=== PATIENT | male | born 1955 | race Caucasian/White ===

== ENCOUNTER 2017-04-18 08:32 | Emergency (ER) | payer MEDICARE ==
[~2017-04-18] VITALS: Ht 180.3 cm; Wt 94.0 kg
[~2017-04-18 08:32] MED LIST: CYCL5TAB PO; HYDR10TA16 PO; LORC10TA PO; PERC10TA27 PO; PROT40TA PO
[2017-04-18 08:36] VITALS: BP 181/84; PULSE 98; RESP 16; TEMP 97.4; O2SAT 95
[2017-04-18] MEDS ORDERED: LISI-519 PO (08:53)
[2017-04-18] MEDS ORDERED: DEXI60CA3 PO (08:53)
[2017-04-18] MEDS ORDERED: ATOR20TA15 PO (08:53)
[2017-04-18] MEDS ORDERED: METF1000 PO (08:53)
[2017-04-18] MEDS ORDERED: CLAR10CA3 PO (08:53)
[2017-04-18] MEDS ORDERED: ASPI-516 CHEW (08:53)
[2017-04-18] MEDS ORDERED: MULT-65 PO (08:53)
[2017-04-18] MEDS ORDERED: HYDR-3583 PO (08:53)
--- NOTE | 2017-04-18 09:18 | PD ---
HPI Chief Complaint: Skin Problem Time Seen by Provider: 09:05 Travel History International Travel<30 days: No Contact w/Intl Traveler<30days: No Traveled to known affect area: No History of Present Illness HPI 61 YO M PMH of DM, HTN, chronic pain, MRSA presents to the ED for evaluation of week history of painful wound of the lower right abdomen. I states "I think I 'm having a MRSA outbreak." He states that the wounds have both opened and drained copious pus. He endorses mild nausea. He denies fever, chills, vomiting. He treated at home with Bactroban ointment. PFSH Past Medical History Hx Anticoagulant Therapy: Yes (ASA 81 MG.) Cardiovascular Problems: No Cerebrovascular Accident: Yes (TIA'S HTN, CHOL) Diabetes: Yes (PRE) Patient Takes Glucophage: Yes Diminished Hearing: No Musculoskeletal: No Neurologic: No Migraines: No Seizures: No Tetanus Vaccination: Unknown Past Surgical History Abdominal Surgery: No Cardiac Surgery: No Cholecystectomy: Yes (03) Ear Surgery: No Endocrine Surgery: No Eye Surgery: No Gynecologic Surgery: No Oral Surgery: No Thoracic Surgery: No Social History Alcohol Use: No Tobacco Use: Yes (1 PPD) Substance Use: No Allergies-Medications (Allergen,Severity, Reaction): Coded Allergies: penicillin G (Unverified Allergy, Mild, 04/18/17) Reported Meds & Prescriptions Reported Meds & Active Scripts Active Reported Multi-Vitamin Daily (Multiple Vitamin) 1 Tab Tab 1 Tab PO DAILY Claritin (Loratadine) 10 Mg Cap 10 Mg PO DAILY Aspirin 81 Mg Chew 81 Mg CHEW DAILY Hydrocodone-Acetaminophen 10-325 mg Tab 2 Tab PO Q8HR PRN Atorvastatin (Atorvastatin Calcium) 20 Mg Tab 20 Mg PO HS Lisinopril 5 Mg Tab 5 Mg PO DAILY Dexilant (Dexlansoprazole) 60 Mg Cap.bp 1 Cap PO DAILY Metformin (Metformin HCl) 1,000 Mg Tab 2,000 Mg PO DAILY With a meal Review of Systems Except as stated in HPI: all other systems reviewed are Neg Physical Exam Narrative GENERAL: Well-nourished, well-developed white male in no acute distress. SKIN: Focused skin assessment warm/dry. Multiple tattoos noted. SKIN: There are 2 two indurated areas in the right lower abdomen which measure about 0.5 cm in diameter each. Both are open with small amount of purulent drainage. No fluctuance noted. There is a zone of inflammation around it but no lymphangitis. HEAD: Normocephalic. EYES: No scleral icterus. No injection or drainage. NECK: Supple, trachea midline. No JVD or lymphadenopathy. CARDIOVASCULAR: Regular rate and rhythm without murmurs, gallops, or rubs. RESPIRATORY: Breath sounds equal bilaterally. No accessory muscle use. GASTROINTESTINAL: Abdomen soft, non-tender, nondistended. MUSCULOSKELETAL: No cyanosis, or edema. BACK: Nontender without obvious deformity. No CVA tenderness. Data Data Last Documented VS Vital Signs Date Time Temp Pulse Resp B/P (MAP) Pulse Ox O2 Delivery O2 Flow Rate FiO2 04/18/17 08:36 97.4 98 16 181/84 (116) 95 MDM Medical Decision Making Medical Screen Exam Complete: Yes Emergency Medical Condition: Yes Differential Diagnosis Folliculitis versus abscess versus cellulitis versus other Narrative Course 61 YO M PMH of DM, HTN, chronic pain, MRSA presents to the ED for evaluation of week history of painful wound of the lower right abdomen. I states "I think I 'm having a MRSA outbreak." He states that the wounds have both opened and drained copious pus. He endorses mild nausea. He denies fever, chills, vomiting. He treated at home with Bactroban ointment. He is afebrile on presentation. Physical exam suspicious for small abscesses, draining. No I&D needed. Given history we'll treat for MRSA. Patient's prescribed doxycycline 100 mg twice a day 7 days. We'll refill his Bactroban ointment and have him discard the old tube as well. Patient was provided detailed wound care instructions. We discussed reasons to return to the ED. He indicated understanding the instructions. He is stable and discharged home. Diagnosis Primary Impression: Abscess Additional Impression: MRSA cellulitis Referrals: Primary Care Physician Patient Instructions: Abscess (ED), Cellulitis (ED), General Instructions, MRSA (Methicillin-Resistant Staphylococcus Aureus) (ED) Additional Instructions: Rest, hydrate. Do not change the dressing for 24 hours. You may bathe normally. Do not submerge the wound. After bathing pat of wound dry. Allow the wound to air dry for 10-15 minutes. Apply a thin layer of antibiotic ointment and a clean, dry dressing. Take the antibiotics as they are prescribed, even if your symptoms resolve. Utilize [id number] pain medications, as described on the label, as needed. Monitor for signs of worsening, return to the ED should they occur. Follow-up with your primary care provider in 2 weeks. Return to the ED for any urgent or emergent medical condition. Med/Other Pt SpecificInfo: Prescription(s) given Scripts Doxycycline Hyclate (Doxycycline Hyclate) 100 Mg Cap 100 MG PO BID for Infection for 7 Days, #14 CAP 0 Refills Prov: Porter Cam MD 04/18/17 Mupirocin Topical (Mupirocin Topical) 2 % Oint 1 APPLIC TOPICAL BID for Mgmt Bacterial Infection, #1 TUBE 0 Refills Prov: Porter Cam MD 04/18/17 Disposition: 01 DISCHARGE HOME Condition: Stable Nissa Crouch Apr 18, 2017 09:17
[2017-04-18] MEDS ORDERED: DOXY100C PO (09:19)
[2017-04-18] MEDS ORDERED: MUPI2OIN TOPICAL (09:19)
== END 2017-04-18 09:28 | disposition home or self-care (01) ==
LOC: PHEFT 08:32
DX: L02.211 Cutaneous abscess of abdominal wall (principal); L03.311 Cellulitis of abdominal wall; A49.02 Methicillin resistant Staphylococcus aureus infection, unspecified site; R11.0 Nausea; E11.9 Type 2 diabetes mellitus without complications; I10 Essential (primary) hypertension; G89.29 Other chronic pain; E78.00 Pure hypercholesterolemia, unspecified; F17.200 Nicotine dependence, unspecified, uncomplicated
CPT/HCPCS: 99284